=== PATIENT | female | born 2000 | race Hispanic/Latino ===

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

== ENCOUNTER 2021-02-14 07:07 | Outpatient (CLI) | payer MEDICAID ==
--- NOTE | 2021-02-14 08:21 | Event Note ---
Date: 02/14/21 pt returned to triage for evaluation d/t sharp stabbing pain in right groin. Pt afebrile (denies previous fevers), No rebound tenderness, no abd tenderness, no ctx palpated, no leaking, no bleeding. + FM. Pain is worsened by movement, especially sudden changes in position and movement towards the right side. Description of pain c/w round ligament pain but d/t this being the patient's second triage visit for same complaint, will repeat CBC for any elevation in WBCs, also check amylase and lipase. FHT CAT 1. Will review findings with Dr. Herrera.
[2021-02-14 08:39] LABS: Hematocrit 32.4 % (30.3-42.9); Hemoglobin 10.8 gm/dl (10.1-14.3); Mean Corpuscular HGB Conc 33 % (30-34); Mean Corpuscular Volume 85 fl (79-97); Platelet Count 341 K/mm3 (140-440); Red Blood Count 3.82 M/mm3 (3.65-5.03); Red Cell Distribution Width 14.7 % (13.2-15.2)
--- NOTE | 2021-02-14 09:46 | Ultrasound Report ---
ULTRASOUND ABDOMEN, LIMITED INDICATION: RIGHT LOWER QUADRANT PAIN. Patient is . COMPARISON: None available. FINDINGS: Ultrasound imaging is performed through the right lower quadrant. The appendix is not visualized. The right ovary is unremarkable. There is no free fluid in the right lower quadrant. IMPRESSION: 1. The appendix is not visualized. 2. The right ovary is unremarkable. Signer Name: Diego Euceda MD Signed: 02/14/2021 9:42 AM Workstation Name: [id number]
[2021-02-14 11:55] VITALS: BP 116/77
== END 2021-02-14 12:09 | disposition home or self-care (01) ==
LOC: TRG 07:07 → APU 07:08 → TRG 12:09
PROVIDERS: ATTEND Student in an Organized Health Care Education/Training Program
DX: Z34.93 Encounter for supervision of normal pregnancy, unspecified, third trimester (principal); Z3A.39 39 weeks gestation of pregnancy
CPT/HCPCS: 36415; 59025; 76705; 82150; 83690; 85027

== ENCOUNTER 2021-04-01 08:26 | Inpatient (IN) | payer MEDICAID ==
[2021-04-01] MEDS ORDERED: ACETAMINOPHEN 325 MG TAB PO PRN (08:28)
--- NOTE | 2021-04-01 08:34 | History and Physical Report ---
History of Present Illness Date of examination: 04/01/21 Date of admission: 04/01/21 08:26 Chief complaint: I'm here to be induced. History of present illness: Pt presents for a postdates IOL. EDC Confirmation: 03/24/2021 Gestational Age: 41.1 weeks on admission Past History : 2 Term Births: 0 Premature Births: 0 Living Children: 0 Para: 0 Mult. Births: 0 Prev : 0 Prev. attempt? 0 Aborta: 1 Elect. Ab: 1 Spont. 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 % Family History Risk Factors: Family History of PR in females < 65 years old: no Family History of PR in males < 55 years old: no Dietary Counseling: pn yes Past Medical History: UTI's Recurrent Past Surgical History: negative Family History Summary: MGM - Has Family History of Lung Cancer - Entered On: 08/18/2020 MGM - Has Family History of Hypertension - Entered On: 08/18/2020 MGM - Has Family History of Diabetes - Entered On: 08/18/2020 Father - Has Family History of Asthma - Entered On: 08/23/2020 MGM - Has Family History Breast Cancer - Entered On: 08/18/2020 Past Medical History Anesthesia Complications: negative Anemia: negative Autoimmune Disorder: negative Bleeding Disorder: negative Blood Transfusions: negative Breast Disease: negative Diabetes: negative Heart Disease: negative Hypertension: negative Hepatitis/Liver Disease: negative Kidney Disease/UTI: positive Neurologic/Epilepsy/Migraines: negative Phlebitis/Varicosities: negative Psychiatric: negative Pulmonary Disease/Asthma: negative Thyroid Disease: negative Hospitalizations: positive, pyelonephritis in 2018 Surgery (Non-bomb squad commander): negative Abnormal PAP: negative KRISTINE Exposure: negative Infertility: negative Uterine Anomaly: negative Uterine Surgery (not C/S): negative Other Gynecologic Problems: negative Infection History Hx of STD: chlamydia HIV Risk Eval: no Hepatitis B Risk Eval: low risk Personal hx. of genital herpes: no Partner hx. of genital herpes: no Rash, Viral, or Febrile illness since last LMP? no Varicella/Chicken Pox Status: Unknown TB Risk: no Genetic History Congenital Heart Defect: Mom: no Dad: unknown Vazquez Disease: Mom: no Dad: unknown Thalassemia Mom: no Dad: unknown Neural Tube Defect Mom: no Dad: unknown Down's Syndrome Mom: no Dad: unknown Leighton-Sachs Mom: no Dad: unknown Sickle Cell Disease/Trait Mom: no Dad: unknown Hemophilia Mom: no Dad: unknown Muscular Dystrophy Mom: no Dad: unknown Cystic Fibrosis Mom: no Dad: unknown Saurabh Chorea Mom: no Dad: unknown Mental Retardation Mom: no Dad: unknown Fragile X Mom: no Dad: unknown Other Genetic/Chromosomal Disorder Mom: no Dad: unknown Child w/other defect Mom: no Dad: unknown Other: sister with Sutton's syndrome Enviromental Exposures Enviromental Exposures Reviewed Xray Exposure: no Medication, drug, or alcohol use since LMP: no Chemical/Other Exposure: no Exposure to Cat Liter: no Hx of Parvovirus (Fifth Disease): no Occupational Exposure to Children: none Current Allergies (reviewed today): * BEES (Critical) Past History Past Medical History: other (Recurrent UTI's) Past Surgical History: no surgical history Family/Genetic History: diabetes, hypertension, cancer, other (Asthma and Sutton's Syndrome) Social history: no significant social history - Obstetrical History Expected Date of Delivery: 03/24/21 Actual Gestation: 41 Week(s) 1 Day(s) : 2 Para: 0 Hx # Term Pregnancies: 0 Number of Pregnancies: 0 Spontaneous Abortions: 0 Induced : 1 Number of Living Children: 0 Medications and Allergies Allergies Allergy/AdvReac Type Severity Reaction Status Date / Time No Known Allergies Allergy Verified 02/13/21 11:30 Home Medications Medication Instructions Recorded Confirmed Last Taken Type Albuterol Mdi (or & Nicu Only) 1 puff IH Q4H PRN #1 inha 03/21/16 Unknown Rx [Proair] Naproxen [Naproxen TAB] 250 mg PO BID PRN #14 tablet 03/21/16 Unknown Rx Phenylephrine/Dm/Acetaminop/GG 10 ml PO Q6H PRN #1 liquid 03/21/16 Unknown Rx [Mucinex Fast-Max Sev Cold Liq] Penicillin V Potassium 500 mg PO BID #20 tablet 04/10/18 Unknown Rx Ibuprofen [Motrin 600 MG tab] 600 mg PO Q8H PRN #21 tablet 10/30/18 Unknown Rx Promethazine [Phenergan] 25 mg PO Q6HR PRN #10 tab 12/17/18 Unknown Rx Ibuprofen [Motrin] 600 mg PO Q8H PRN #24 tablet 08/16/19 Unknown Rx Sulfamethoxazole/Trimethoprim 1 each PO Q12H #20 tablet 08/16/19 Unknown Rx [Bactrim DS TAB] Review of Systems All systems: negative - Physical Exam Breasts: Positive: deferred Cardiovascular: Regular rate Lungs: Positive: Normal air movement Abdomen: Positive: normal appearance, soft Genitourinary (Female): Positive: normal external genitalia, normal perenium Vulva: both: normal Vagina: Positive: normal moisture Anus/Rectum: Positive: normal perianal skin Extremities: Positive: normal - Obstetrical FHR: category 1 Uterine Contraction Monitor Mode: External Cervical Dilatation: 3.5 Cervical Effacement Percentage: 60 station: -2 Uterine Contraction Pattern: Irregular Uterine Tone Measurement Phase: Resting Uterine Contraction Intensity: Mild Results All other labs normal. GBS POSITIVE HBsAg Screen Negative Negative *1 RPR Non Reactive Non Reactive *2 Rubella Antibodies, IgG 1.46 index Immune >0.99 *3 Non-immune <0.90 Equivocal 0.90 - 0.99 Immune >0.99 ABO Grouping AB *4 Rh Factor Negative *5 Please note: Prior records for this patient's ABO / Rh type are not available for additional verification. Antibody Screen Negative Negative *6 WBC 9.4 x10E3/uL 3.4-10.8 *7 RBC 4.36 x10E6/uL 3.77-5.28 *8 Hemoglobin 12.9 g/dL 11.1-15.9 *9 Hematocrit 39.5 % 34.0-46.6 *10 MCV 91 fL 79-97 *11 MCH 29.6 pg 26.6-33.0 *12 MCHC 32.7 g/dL 31.5-35.7 *13 RDW 12.8 % 11.7-15.4 *14 Platelets 286 x10E3/uL 150-450 *15 Neutrophils 78 % Not Estab. *16 Lymphs 14 % Not Estab. *17 Monocytes 7 % Not Estab. *18 Eos 1 % Not Estab. *19 Basos 0 % Not Estab. *20 ! Immature Cells <No Reported Value> *21 Neutrophils (Absolute) [H] 7.3 x10E3/uL 1.4-7.0 *22 Lymphs (Absolute) 1.3 x10E3/uL 0.7-3.1 *23 Monocytes(Absolute) 0.6 x10E3/uL 0.1-0.9 *24 Eos (Absolute) 0.1 x10E3/uL 0.0-0.4 *25 Baso (Absolute) 0.0 x10E3/uL 0.0-0.2 *26 ! Immature Granulocytes 0 % Not Estab. *27 ! Immature Grans (Abs) 0.0 x10E3/uL 0.0-0.1 *28 ! NRBC <No Reported Value> *29 Hematology Comments: <No Reported Value> *30 Tests: (2) HB Solu + Rflx Frac (620249) Hemoglobin (Hgb) Solubility Negative Negative *31 Tests: (3) HIV Ag/Ab with Reflex ([id number]) HIV Screen 4th Generation wRfx Non Reactive Non Reactive *32 Tests: (4) Varicella-Zoster V Ab, IgG ([id number]) ! Varicella Zoster IgG [L] <135 index Immune >165 *33 Negative <135 Equivocal 135 - 165 Positive >165 A positive result generally indicates exposure to the pathogen or administration of specific immunoglobulins, but it is not indication of active infection or stage of disease. Tests: (5) Varicella-Zoster Ab, IgM ([id number]) ! Varicella-Zoster Ab, IgM <0.91 index 0.00-0.90 *34 Negative <0.91 Borderline 0.91 - 1.09 Positive >1.09 Tests: (6) HCV Antibody reflex to SLY ([id number]) ! HCV Ab <0.1 s/co ratio 0.0-0.9 *35 Tests: (7) Interpretation: ([id number]) ! Interpretation: SPRCS *36 Negative Not infected with HCV, unless recent infection is suspected or other evidence exists to indicate HCV infection. Tests: (8) Urine Culture, Routine ([id number]) Urine Culture, Routine [A] Final report *37 Tests: (9) Result ([id number]) ! Result 1 [A] BETAGB *38 Beta hemolytic Streptococcus, group B 10,000-25,000 colony forming units per mL Penicillin and ampicillin are drugs of choice for treatment of beta-hemolytic streptococcal infections. Susceptibility testing of penicillins and other beta-lactam agents approved by the FDA for treatment of beta-hemolytic streptococcal infections need not be performed routinely because nonsusceptible isolates are extremely rare in any beta-hemolytic streptococcus and have not been reported for Streptococcus pyogenes (group A). (CLSI) ! Assessment and Plan A: 20 y.o. @ 41.1 wks, augmentation of labor. - Patient Problems (1) GBS (group B streptococcus) infection Current Visit: Yes Status: Acute Plan to address problem: Antibiotics while in labor. (2) Post-term , 40-42 weeks of gestation Current Visit: Yes Status: Acute Plan to address problem: Admit to labor and delivery Initiate IV. Draw admission labs. IV pain management: IV pain medication and epidural prn. Augmentation of labor with Pitocin per protocol. Anticipate .
[2021-04-01] MEDS ORDERED: LOPERAMIDE 2 MG CAP PO PRN (09:00)
[2021-04-01] MEDS ORDERED: OXYTOCIN DRIP 30 UNITS/500 ML BAG IV SCH ×2 (09:00)
[2021-04-01] MEDS ORDERED: ePHEDrine SULFATE 50 MG/1 ML INJ IV PRN ×2 (09:30→17:41)
[2021-04-01] MEDS ORDERED: CARBOPROST TROMETHAMINE 250 MCG/1 ML INJ IM PRN (09:30)
[2021-04-01] MEDS ORDERED: fentaNYL 100 MCG/2 ML INJ IV PRN (09:30)
[2021-04-01] MEDS ORDERED: miSOPROStol 200 MCG TAB PR PRN (09:30)
[2021-04-01] MEDS ORDERED: ACETAMINOPHEN 500 MG TAB PO PRN (10:00)
[2021-04-01] MEDS ORDERED: ONDANSETRON 4 MG/2 ML INJ IV PRN (10:00)
[2021-04-01] MEDS ORDERED: PROMETHAZINE 25 MG TAB PO PRN (10:00)
[2021-04-01] MEDS ORDERED: TERBUTALINE 1 MG/1 ML INJ SUB-Q PRN (10:00)
[2021-04-01] MEDS ORDERED: OXYTOCIN 10 UNIT/1 ML INJ IM PRN (10:00)
[2021-04-01] MEDS ORDERED: MINERAL OIL 30 ML ORAL LIQD PO PRN (10:00)
[2021-04-01] MEDS ORDERED: NALOXONE 0.4 MG/1 ML INJ IV PRN (10:00)
[2021-04-01] MEDS ORDERED: LIDOCAINE (2%) 20 MG/1 ML VIAL 20 ML MDV INFILTRATI SCH (10:00)
[2021-04-01] MEDS ORDERED: BUTORPHANOL 2 MG/1 ML INJ IV PRN (10:00)
[2021-04-01] MEDS ORDERED: METHYLERGONOVINE MALEATE 0.2 MG/ML VIAL IM PRN (10:00)
[2021-04-01] MEDS ORDERED: AMPICILLIN/NS 2 GM/100 ML 2 GM/100 ML BAG IV SCH (10:00)
[2021-04-01] MEDS: LACTATED RINGERS 1,000 ML IV SCH ×2 (10:03→18:44)
[2021-04-01 10:25] LABS: Hematocrit 34.1 % (30.3-42.9); Hemoglobin 11.1 gm/dl (10.1-14.3); Mean Corpuscular HGB Conc 32 % (30-34); Mean Corpuscular Volume 83 fl (79-97); Platelet Count 318 K/mm3 (140-440); Red Blood Count 4.12 M/mm3 (3.65-5.03); Red Cell Distribution Width 16.3 % (13.2-15.2)
--- NOTE | 2021-04-01 13:05 | Progress Note ---
Assessment and Plan A: 20 y.o. @ 41.1, augmentation of labor, post dates. P: Continue with Pitocin per protocol. Will AROM at next cervical exam. Anticipate . - Patient Problems (1) GBS (group B streptococcus) infection Current Visit: Yes Status: Acute (2) Post-term , 40-42 weeks of gestation Current Visit: Yes Status: Acute Subjective - Subjective Date of service: 04/01/21 Principal diagnosis: IUP@ 41.1 wks, augmentation of labor d/t post dates Interval history: Cat 1 tracing. Pitocin @ 4mu. Pt resting in bed, feeling intermittent pain in lower back consistent with contractions. Does not desire pain medication at this time. Supportive partner at bedside. RN at bedside adjusting EFM monitors. Patient reports: movement normal, contractions, no new complaints, no loss of fluid, no vaginal bleeding Objective - Vital Signs Vital Signs: Vital Signs - 12hr 04/01/21 04/01/21 04/01/21 10:15 10:16 10:17 Temperature 97.9 F Pulse Rate 86 90 Respiratory 18 Rate Blood Pressure 119/73 Blood Pressure 119/73 [Right] O2 Sat by Pulse 98 98 Oximetry O2 Sat by Pulse 98 Oximetry [ Bilateral] 04/01/21 04/01/21 04/01/21 10:21 10:26 10:31 Temperature Pulse Rate 86 80 90 Respiratory Rate Blood Pressure Blood Pressure [Right] O2 Sat by Pulse 98 98 98 Oximetry O2 Sat by Pulse Oximetry [ Bilateral] 04/01/21 04/01/21 04/01/21 10:36 10:41 10:46 Temperature Pulse Rate 85 87 95 H Respiratory Rate Blood Pressure Blood Pressure [Right] O2 Sat by Pulse 99 99 99 Oximetry O2 Sat by Pulse Oximetry [ Bilateral] 04/01/21 04/01/21 04/01/21 10:51 10:56 11:01 Temperature Pulse Rate 85 89 88 Respiratory Rate Blood Pressure Blood Pressure [Right] O2 Sat by Pulse 99 99 98 Oximetry O2 Sat by Pulse Oximetry [ Bilateral] 04/01/21 04/01/21 04/01/21 11:06 11:11 11:16 Temperature Pulse Rate 90 93 H 79 Respiratory Rate Blood Pressure Blood Pressure [Right] O2 Sat by Pulse 99 99 100 Oximetry O2 Sat by Pulse Oximetry [ Bilateral] 04/01/21 04/01/21 04/01/21 11:21 11:26 11:31 Temperature Pulse Rate 86 80 82 Respiratory Rate Blood Pressure Blood Pressure [Right] O2 Sat by Pulse 99 99 99 Oximetry O2 Sat by Pulse Oximetry [ Bilateral] 04/01/21 04/01/21 04/01/21 11:36 11:44 11:49 Temperature Pulse Rate 78 83 84 Respiratory Rate Blood Pressure Blood Pressure [Right] O2 Sat by Pulse 99 99 99 Oximetry O2 Sat by Pulse Oximetry [ Bilateral] 04/01/21 04/01/21 04/01/21 11:54 11:59 12:04 Temperature Pulse Rate 78 79 84 Respiratory Rate Blood Pressure Blood Pressure [Right] O2 Sat by Pulse 99 99 99 Oximetry O2 Sat by Pulse Oximetry [ Bilateral] 04/01/21 04/01/21 04/01/21 12:09 12:14 12:19 Temperature Pulse Rate 88 82 81 Respiratory Rate Blood Pressure Blood Pressure [Right] O2 Sat by Pulse 100 100 100 Oximetry O2 Sat by Pulse Oximetry [ Bilateral] 04/01/21 04/01/21 04/01/21 12:24 12:29 12:34 Temperature Pulse Rate 76 81 84 Respiratory Rate Blood Pressure Blood Pressure [Right] O2 Sat by Pulse 99 99 99 Oximetry O2 Sat by Pulse Oximetry [ Bilateral] 04/01/21 04/01/21 04/01/21 12:39 12:44 12:49 Temperature Pulse Rate 78 76 77 Respiratory Rate Blood Pressure Blood Pressure [Right] O2 Sat by Pulse 99 99 99 Oximetry O2 Sat by Pulse Oximetry [ Bilateral] 04/01/21 12:54 Temperature Pulse Rate 80 Respiratory Rate Blood Pressure Blood Pressure [Right] O2 Sat by Pulse 100 Oximetry O2 Sat by Pulse Oximetry [ Bilateral] - Exam FHR: category 1 Uterine Contraction Monitor Mode: External Cervical Dilatation: 5 Cervical Effacement Percentage: 60 station: -2 Uterine Contraction Frequency (min): q2-3 min Uterine Contraction Duration: 50-70 seconds Uterine Contraction Pattern: Regular Uterine Tone Measurement Phase: Resting Uterine Contraction Intensity: Mild - Labs Labs: Abnormal Labs 04/01/21 09:28 MCH 27 L RDW 16.3 H Laboratory Results - last 24 hr 04/01/21 04/01/21 04/01/21 09:28 09:28 09:36 WBC 9.2 RBC 4.12 Hgb 11.1 Hct 34.1 MCV 83 MCH 27 L MCHC 32 RDW 16.3 H Plt Count 318 Syphilis IgG Antibody Nonreactive SARS-CoV-2 (PCR) Blood Type AB NEGATIVE Antibody Screen Negative 04/01/21 09:40 WBC RBC Hgb Hct MCV MCH MCHC RDW Plt Count Syphilis IgG Antibody SARS-CoV-2 (PCR) Negative Blood Type Antibody Screen
[2021-04-01] MEDS: AMPICILLIN/NS 1 GM/50 ML 1 GM/50 ML BAG IV SCH ×2 (15:23→20:38)
--- NOTE | 2021-04-01 17:13 | Event Note ---
Date: 04/01/21 Pt starting to feel contractions. AROM for clear fluid. Cervical exam . Pt requesting epidural. Anesthesia aware. Currently a category 1 monitor tracing. Pitocin at 6mu. Anticipate .
[2021-04-01] MEDS ORDERED: NALOXONE 2 MG/2 ML INJ IV PRN (17:41)
[2021-04-01] MEDS ORDERED: BUPIVACAINE/PF (0.25%) 2.5 MG/ML 10 ML VIAL INFILTRATI ONE (17:47)
[2021-04-01] MEDS ORDERED: fentaNYL-BUPIV 2 MCG/ML-0.125% 200 MCG/100 ML BAG EPIDURAL SCH (18:00)
--- NOTE | 2021-04-01 18:14 | Anesthesia Consultation ---
Anesthesia Consult and Med Hx Date of service: 04/01/21 - Airway Anesthetic Teeth Evaluation: Poor ROM Head & Neck: Adequate Mental/Hyoid Distance: Adequate Mallampati Class: Class II Intubation Access Assessment: Good - Pulmonary Exam CTA: Yes - Cardiac Exam Cardiac Exam: RRR - Pre-Operative Health Status ASA Pre-Surgery Classification: ASA2 Proposed Anesthetic Plan: Epidural - Pulmonary Hx Smoking: No Hx Asthma: No Hx Respiratory Symptoms: No SOB: No COPD: No Home Oxygen Therapy: No Hx Pneumonia: No Hx Sleep Apnea: No - Cardiovascular System Hx Hypertension: No Hx Coronary Artery Disease: No Hx Heart Attack/AMI: No - Central Nervous System Hx Seizures: No CVA: No Hx Back Pain: No Hx Psychiatric Problems: No - Gastrointestinal Hx Ulcer: No Hx Gastroesophageal Reflux Disease: No - Endocrine Hx Renal Disease: No Hx End Stage Renal Disease: No Hx Cirrhosis: No Hx Liver Disease: No Hx Insulin Dependent Diabetes: No Hx Non-Insulin Dependent Diabetes: No Hx Hypothyroidism: No Hx Hyperthyroidism: No - Hematic Hx Anemia: No Hx Sickle Cell Disease: No - Other Systems Hx Alcohol Use: No Hx Substance Use: No Hx Obesity: Yes
--- NOTE | 2021-04-01 18:28 | Progress Note ---
Spinal Anesthesia Block - Spinal Anesthesia Block Start Time: 17:56 Stop Time: 18:05 Performed by:: CHERY MENDIOLA Procedure: Patient is requesting epidural for labor pain. H&P and labs reviewed. Procedure explained, questions answered, consent obtained. Patient placed in sitting position with monitors applied. Timeout performed immediately before start of procedure. Prep/drape in usual sterile fashion. Skin localized 3 mL 1% lidocaine at L[3]-L[4] interspace. 17-gauge Touhy epidural needle advanced to CADE with saline at [8] cm. No blood/CSF noted via epidural needle. Epidural catheter advanced to [12] cm. Negative aspiration for blood and CSF via catheter, negative response to test dose 3 ml 1.5% lidocaine w/ epi. Sterile dressing applied followed by tape reinforcement. Patient tolerated procedure well. No immediate complications noted. 2.5% Bupivacaine 8mL loading Dose.
--- NOTE | 2021-04-01 20:04 | Progress Note ---
Assessment and Plan A: 20 y.o. 41.1 wks, active labor. Cervical exam . - Patient Problems (1) GBS (group B streptococcus) infection Current Visit: Yes Status: Acute Plan to address problem: Continue with antibiotics in labor. (2) Post-term , 40-42 weeks of gestation Current Visit: Yes Status: Acute Plan to address problem: Pitocin turned off at this time. Once category 1 EFM, will restart Pitocin. Anticipate . Subjective - Subjective Date of service: 04/01/21 Principal diagnosis: IUP@ 41.1 wks, augmentation of labor d/t post dates Patient reports: movement normal, contractions, no new complaints, no loss of fluid, no vaginal bleeding Objective - Vital Signs Vital Signs: Vital Signs - 12hr 04/01/21 04/01/21 04/01/21 10:15 10:16 10:17 Temperature 97.9 F Pulse Rate 86 90 Respiratory 18 Rate Blood Pressure 119/73 Blood Pressure 119/73 [Right] O2 Sat by Pulse 98 98 Oximetry O2 Sat by Pulse 98 Oximetry [ Bilateral] 04/01/21 04/01/21 04/01/21 10:21 10:26 10:31 Temperature Pulse Rate 86 80 90 Respiratory Rate Blood Pressure Blood Pressure [Right] O2 Sat by Pulse 98 98 98 Oximetry O2 Sat by Pulse Oximetry [ Bilateral] 04/01/21 04/01/21 04/01/21 10:36 10:41 10:46 Temperature Pulse Rate 85 87 95 H Respiratory Rate Blood Pressure Blood Pressure [Right] O2 Sat by Pulse 99 99 99 Oximetry O2 Sat by Pulse Oximetry [ Bilateral] 04/01/21 04/01/21 04/01/21 10:51 10:56 11:01 Temperature Pulse Rate 85 89 88 Respiratory Rate Blood Pressure Blood Pressure [Right] O2 Sat by Pulse 99 99 98 Oximetry O2 Sat by Pulse Oximetry [ Bilateral] 04/01/21 04/01/21 04/01/21 11:06 11:11 11:16 Temperature Pulse Rate 90 93 H 79 Respiratory Rate Blood Pressure Blood Pressure [Right] O2 Sat by Pulse 99 99 100 Oximetry O2 Sat by Pulse Oximetry [ Bilateral] 04/01/21 04/01/21 04/01/21 11:21 11:26 11:31 Temperature Pulse Rate 86 80 82 Respiratory Rate Blood Pressure Blood Pressure [Right] O2 Sat by Pulse 99 99 99 Oximetry O2 Sat by Pulse Oximetry [ Bilateral] 04/01/21 04/01/21 04/01/21 11:36 11:44 11:49 Temperature Pulse Rate 78 83 84 Respiratory Rate Blood Pressure Blood Pressure [Right] O2 Sat by Pulse 99 99 99 Oximetry O2 Sat by Pulse Oximetry [ Bilateral] 04/01/21 04/01/21 04/01/21 11:54 11:59 12:04 Temperature Pulse Rate 78 79 84 Respiratory Rate Blood Pressure Blood Pressure [Right] O2 Sat by Pulse 99 99 99 Oximetry O2 Sat by Pulse Oximetry [ Bilateral] 04/01/21 04/01/21 04/01/21 12:09 12:14 12:19 Temperature Pulse Rate 88 82 81 Respiratory Rate Blood Pressure Blood Pressure [Right] O2 Sat by Pulse 100 100 100 Oximetry O2 Sat by Pulse Oximetry [ Bilateral] 04/01/21 04/01/21 04/01/21 12:24 12:29 12:34 Temperature Pulse Rate 76 81 84 Respiratory Rate Blood Pressure Blood Pressure [Right] O2 Sat by Pulse 99 99 99 Oximetry O2 Sat by Pulse Oximetry [ Bilateral] 04/01/21 04/01/21 04/01/21 12:39 12:44 12:49 Temperature Pulse Rate 78 76 77 Respiratory Rate Blood Pressure Blood Pressure [Right] O2 Sat by Pulse 99 99 99 Oximetry O2 Sat by Pulse Oximetry [ Bilateral] 04/01/21 04/01/21 04/01/21 12:54 12:59 13:04 Temperature Pulse Rate 80 76 77 Respiratory Rate Blood Pressure Blood Pressure [Right] O2 Sat by Pulse 100 100 100 Oximetry O2 Sat by Pulse Oximetry [ Bilateral] 04/01/21 04/01/21 04/01/21 13:09 13:14 13:19 Temperature Pulse Rate 75 79 81 Respiratory Rate Blood Pressure Blood Pressure [Right] O2 Sat by Pulse 100 100 99 Oximetry O2 Sat by Pulse Oximetry [ Bilateral] 04/01/21 04/01/21 04/01/21 13:24 13:29 13:40 Temperature Pulse Rate 85 72 94 H Respiratory Rate Blood Pressure Blood Pressure [Right] O2 Sat by Pulse 100 100 100 Oximetry O2 Sat by Pulse Oximetry [ Bilateral] 04/01/21 04/01/21 04/01/21 13:45 13:50 13:55 Temperature Pulse Rate 84 80 80 Respiratory Rate Blood Pressure Blood Pressure [Right] O2 Sat by Pulse 99 100 100 Oximetry O2 Sat by Pulse Oximetry [ Bilateral] 04/01/21 04/01/21 04/01/21 14:00 14:05 14:10 Temperature Pulse Rate 72 72 70 Respiratory Rate Blood Pressure Blood Pressure [Right] O2 Sat by Pulse 100 99 100 Oximetry O2 Sat by Pulse Oximetry [ Bilateral] 04/01/21 04/01/21 04/01/21 14:15 14:20 14:25 Temperature Pulse Rate 86 74 70 Respiratory Rate Blood Pressure Blood Pressure [Right] O2 Sat by Pulse 100 100 100 Oximetry O2 Sat by Pulse Oximetry [ Bilateral] 04/01/21 04/01/21 04/01/21 14:30 14:35 14:40 Temperature Pulse Rate 83 84 85 Respiratory Rate Blood Pressure Blood Pressure [Right] O2 Sat by Pulse 100 100 100 Oximetry O2 Sat by Pulse Oximetry [ Bilateral] 04/01/21 04/01/21 04/01/21 14:45 14:50 14:55 Temperature Pulse Rate 78 80 80 Respiratory Rate Blood Pressure Blood Pressure [Right] O2 Sat by Pulse 100 100 100 Oximetry O2 Sat by Pulse Oximetry [ Bilateral] 04/01/21 04/01/21 04/01/21 15:00 15:05 15:13 Temperature Pulse Rate 75 88 94 H Respiratory Rate Blood Pressure Blood Pressure [Right] O2 Sat by Pulse 100 100 99 Oximetry O2 Sat by Pulse Oximetry [ Bilateral] 04/01/21 04/01/21 04/01/21 15:18 15:23 15:25 Temperature 97.8 F Pulse Rate 89 82 Respiratory Rate Blood Pressure 130/91 Blood Pressure 130/91 [Right] O2 Sat by Pulse 100 100 Oximetry O2 Sat by Pulse Oximetry [ Bilateral] 04/01/21 04/01/21 04/01/21 15:28 15:33 15:38 Temperature Pulse Rate 81 93 H 90 Respiratory Rate Blood Pressure Blood Pressure [Right] O2 Sat by Pulse 100 99 100 Oximetry O2 Sat by Pulse Oximetry [ Bilateral] 04/01/21 04/01/21 04/01/21 15:43 15:48 15:53 Temperature Pulse Rate 82 76 87 Respiratory Rate Blood Pressure Blood Pressure [Right] O2 Sat by Pulse 100 100 100 Oximetry O2 Sat by Pulse Oximetry [ Bilateral] 04/01/21 04/01/21 04/01/21 15:58 16:03 16:08 Temperature Pulse Rate 80 82 70 Respiratory Rate Blood Pressure Blood Pressure [Right] O2 Sat by Pulse 100 100 100 Oximetry O2 Sat by Pulse Oximetry [ Bilateral] 04/01/21 04/01/21 04/01/21 16:13 16:18 16:23 Temperature Pulse Rate 73 74 77 Respiratory Rate Blood Pressure Blood Pressure [Right] O2 Sat by Pulse 100 100 100 Oximetry O2 Sat by Pulse Oximetry [ Bilateral] 04/01/21 04/01/21 04/01/21 16:28 16:33 16:38 Temperature Pulse Rate 84 74 86 Respiratory Rate Blood Pressure Blood Pressure [Right] O2 Sat by Pulse 100 100 100 Oximetry O2 Sat by Pulse Oximetry [ Bilateral] 04/01/21 04/01/21 04/01/21 16:43 16:48 16:53 Temperature Pulse Rate 80 68 74 Respiratory Rate Blood Pressure Blood Pressure [Right] O2 Sat by Pulse 100 100 100 Oximetry O2 Sat by Pulse Oximetry [ Bilateral] 04/01/21 04/01/21 04/01/21 16:58 17:03 17:14 Temperature Pulse Rate 85 71 70 Respiratory Rate Blood Pressure Blood Pressure [Right] O2 Sat by Pulse 100 100 100 Oximetry O2 Sat by Pulse Oximetry [ Bilateral] 04/01/21 04/01/21 04/01/21 17:19 17:24 17:29 Temperature Pulse Rate 80 76 87 Respiratory Rate Blood Pressure Blood Pressure [Right] O2 Sat by Pulse 100 100 100 Oximetry O2 Sat by Pulse Oximetry [ Bilateral] 04/01/21 04/01/21 04/01/21 17:34 17:39 17:44 Temperature Pulse Rate 89 79 73 Respiratory Rate Blood Pressure Blood Pressure [Right] O2 Sat by Pulse 100 100 100 Oximetry O2 Sat by Pulse Oximetry [ Bilateral] 04/01/21 04/01/21 04/01/21 17:49 17:53 17:54 Temperature Pulse Rate 71 81 65 Respiratory Rate Blood Pressure 121/79 Blood Pressure [Right] O2 Sat by Pulse 100 100 Oximetry O2 Sat by Pulse Oximetry [ Bilateral] 04/01/21 04/01/21 04/01/21 17:59 18:03 18:04 Temperature Pulse Rate 68 77 70 Respiratory Rate Blood Pressure 143/83 Blood Pressure [Right] O2 Sat by Pulse 100 100 Oximetry O2 Sat by Pulse Oximetry [ Bilateral] 04/01/21 04/01/21 04/01/21 18:06 18:09 18:10 Temperature 97.9 F Pulse Rate 83 66 Respiratory Rate Blood Pressure 141/84 146/92 Blood Pressure [Right] O2 Sat by Pulse 100 Oximetry O2 Sat by Pulse Oximetry [ Bilateral] 04/01/21 04/01/21 04/01/21 18:12 18:14 18:15 Temperature Pulse Rate 68 75 73 Respiratory Rate Blood Pressure 135/77 134/72 Blood Pressure [Right] O2 Sat by Pulse 100 Oximetry O2 Sat by Pulse Oximetry [ Bilateral] 04/01/21 04/01/21 04/01/21 18:18 18:19 18:21 Temperature Pulse Rate 71 69 69 Respiratory Rate Blood Pressure 137/82 131/76 Blood Pressure [Right] O2 Sat by Pulse 100 Oximetry O2 Sat by Pulse Oximetry [ Bilateral] 04/01/21 04/01/21 04/01/21 18:24 18:29 18:31 Temperature Pulse Rate 79 78 68 Respiratory Rate Blood Pressure 110/73 110/61 Blood Pressure [Right] O2 Sat by Pulse 100 100 Oximetry O2 Sat by Pulse Oximetry [ Bilateral] 04/01/21 04/01/21 04/01/21 18:34 18:35 18:39 Temperature Pulse Rate 75 68 71 Respiratory Rate Blood Pressure 111/65 Blood Pressure [Right] O2 Sat by Pulse 100 100 Oximetry O2 Sat by Pulse Oximetry [ Bilateral] 04/01/21 04/01/21 04/01/21 18:40 18:44 18:46 Temperature Pulse Rate 79 69 68 Respiratory Rate Blood Pressure 108/65 112/59 Blood Pressure [Right] O2 Sat by Pulse 100 Oximetry O2 Sat by Pulse Oximetry [ Bilateral] 04/01/21 04/01/21 04/01/21 18:49 18:50 18:54 Temperature Pulse Rate 107 H 91 H 84 Respiratory Rate Blood Pressure 139/87 Blood Pressure [Right] O2 Sat by Pulse 100 100 Oximetry O2 Sat by Pulse Oximetry [ Bilateral] 04/01/21 04/01/21 04/01/21 18:56 18:59 19:04 Temperature Pulse Rate 81 77 77 Respiratory Rate Blood Pressure 122/60 Blood Pressure [Right] O2 Sat by Pulse 100 100 Oximetry O2 Sat by Pulse Oximetry [ Bilateral] 04/01/21 04/01/21 04/01/21 19:09 19:11 19:14 Temperature Pulse Rate 77 82 75 Respiratory Rate Blood Pressure 89/58 Blood Pressure [Right] O2 Sat by Pulse 100 100 Oximetry O2 Sat by Pulse Oximetry [ Bilateral] 04/01/21 04/01/21 04/01/21 19:15 19:19 19:24 Temperature Pulse Rate 80 77 86 Respiratory Rate Blood Pressure 89/52 Blood Pressure [Right] O2 Sat by Pulse 100 100 Oximetry O2 Sat by Pulse Oximetry [ Bilateral] 04/01/21 04/01/21 04/01/21 19:26 19:29 19:31 Temperature Pulse Rate 71 77 101 H Respiratory Rate Blood Pressure 103/51 80/44 Blood Pressure [Right] O2 Sat by Pulse 100 Oximetry O2 Sat by Pulse Oximetry [ Bilateral] 04/01/21 04/01/21 04/01/21 19:34 19:36 19:39 Temperature Pulse Rate 68 79 66 Respiratory Rate Blood Pressure 98/54 Blood Pressure [Right] O2 Sat by Pulse 100 100 Oximetry O2 Sat by Pulse Oximetry [ Bilateral] 04/01/21 04/01/21 04/01/21 19:41 19:44 19:46 Temperature Pulse Rate 67 92 H 75 Respiratory Rate Blood Pressure 84/53 108/67 Blood Pressure [Right] O2 Sat by Pulse 99 Oximetry O2 Sat by Pulse Oximetry [ Bilateral] 04/01/21 04/01/21 19:49 19:50 Temperature Pulse Rate 66 69 Respiratory Rate Blood Pressure 103/63 Blood Pressure [Right] O2 Sat by Pulse 100 Oximetry O2 Sat by Pulse Oximetry [ Bilateral] - Exam Narrative Exam: Variable and late decelerations noted. Blood pressure ranges at that time were 80's/50's. Pitocin turned off, pt repositioned to right lateral. Cervical exam 8/80/-1. FSE and IUPC placed. Ephedrine IV given. Blood pressures returned to 100-140's/70-80's. heart rate returned to baseline after interventions. Cardiovascular: Regular rate Lungs: Normal air movement Abdomen: Present: normal appearance Vulva: both: normal FHR: category 2 (Variable and late decelerations noted. ) Cervical Dilatation: 8 Cervical Effacement Percentage: 80 station: -1 Uterine Contraction Pattern: Regular Uterine Tone Measurement Phase: Resting Uterine Contraction Intensity: Moderate - Labs Labs: Abnormal Labs 04/01/21 09:28 MCH 27 L RDW 16.3 H Laboratory Results - last 24 hr 04/01/21 04/01/21 04/01/21 09:28 09:28 09:36 WBC 9.2 RBC 4.12 Hgb 11.1 Hct 34.1 MCV 83 MCH 27 L MCHC 32 RDW 16.3 H Plt Count 318 Syphilis IgG Antibody Nonreactive SARS-CoV-2 (PCR) Blood Type AB NEGATIVE Antibody Screen Negative 04/01/21 09:40 WBC RBC Hgb Hct MCV MCH MCHC RDW Plt Count Syphilis IgG Antibody SARS-CoV-2 (PCR) Negative Blood Type Antibody Screen
--- NOTE | 2021-04-01 22:12 | Event Note ---
Date: 04/01/21 Pt with dense epidural. Cervical exam /+1. Will turn epidural down and let her labor down. Will began pushing in 30 minutes. Anticipate .
--- NOTE | 2021-04-02 00:48 | Procedure Note ---
OB Delivery Note - Delivery Date of Delivery: 04/01/21 (0525) [employer] Deckhand: KATHY JORDAN (Gretchen Gomez) Estimated blood loss: other (EBL 250) - Vaginal Delivery position: OA Intrapartum events: none Delivery augmentation: rupture of membranes, pitocin Delivery monitor: external FHT, external uterine, internal FHT, internal uterine Route of delivery: Delivery placenta: spontaneous Episiotomy: none Delivery laceration: 1st degree, other (bilateral periurethral abrasions, not repaired) Delivery repair: vicryl Anesthesia: epidural Delivery comments: SVE: c/c/+1 @2200, Pitocin infusing @ 4mu. Pt not feeling urge to push at this time r/t dense epidural. Epidural turned down, pushing initiated with contractions @2250. Cat 1 Tracing. of vigorous female infant @2355. Immediately placed skin to skin on maternal abdomen, delayed cord clamping x2 minutes. APGARS 8/9. Pitocin initiated. Intact delivery of [place] placenta, 3 vessel cord, complete. Bilateral periurethral abrasions not repaired, 1st degree repaired with 3-0 SH. QBL 250mL. Fundus firm, midline@U bleeding moderate. Sponges and instruments counted with RN x2 and correct x2. Infant and mother recovering well. Left in care of RN in stable condition @0035. -Kathy Jordan CNM & Gretchen Gomez - A at 1 minute: 8 at 5 minutes: 9 Gender: Female (delayed cord clamping x2 min)
[2021-04-02] MEDS ORDERED: BENZOCAINE/MENTHOL 20/0.5% TOP SPRAY 56 GM TP PRN (02:49)
[2021-04-02] MEDS ORDERED: miSOPROStol 100 MCG TAB PR PRN (02:49)
[2021-04-02] MEDS ORDERED: ACETAMINOPHEN 325 MG TAB PO PRN (02:49)
[2021-04-02] MEDS ORDERED: PROMETHAZINE 25 MG RECT SUPP PR PRN (02:49)
[2021-04-02] MEDS ORDERED: OXYTOCIN DRIP 30 UNITS/500 ML BAG IV SCH (02:49)
[2021-04-02] MEDS ORDERED: diphenhydrAMINE 25 MG CAP PO PRN (02:49)
[2021-04-02] MEDS ORDERED: ONDANSETRON 4 MG/2 ML INJ IV PRN (02:49)
[2021-04-02] MEDS ORDERED: PROMETHAZINE 25 MG TAB PO PRN (02:49)
[2021-04-02] MEDS ORDERED: MAGNESIUM HYDROXIDE (MOM) ORAL LIQD UDC PO PRN (02:49)
[2021-04-02] MEDS ORDERED: IBUPROFEN 600 MG TAB PO SCH (02:49)
[2021-04-02] MEDS ORDERED: oxyCODONE /ACETAMINOPHEN 5-325MG TAB PO PRN (02:49)
[2021-04-02] MEDS ORDERED: LANOLIN/ZINC/DIMETHICONE (LANSINOH) 7 GM TP PRN ×2 (02:49)
[2021-04-02] MEDS: WITCH HAZEL/ GLYCERIN PAD TP PRN (03:39)
[2021-04-02] MEDS: IBUPROFEN 800 MG TAB PO SCH ×3 (03:39→17:42)
--- NOTE | 2021-04-02 06:42 | Progress Note ---
Assessment and Plan A: 20 y.o. s/p , ~ 6 hrs. Doing well. P: Continue with care. Anticipate discharge home on 04/03. Subjective - Subjective Date of service: 04/02/21 Principal diagnosis: s/p Patient reports: appetite normal, voiding normally, pain well controlled, ambulating normally [place]: doing well Objective - Vital Signs Latest vital signs: Vital Signs Temp Pulse Resp BP BP Pulse Ox Pulse Ox 04/02/21 03:00 98 04/02/21 02:25 98.3 F 100 H 18 117/73 98 04/02/21 01:44 86 99 04/02/21 01:41 89 118/62 04/02/21 01:39 95 H 100 04/02/21 01:34 89 99 04/02/21 01:29 98 H 100 04/02/21 01:26 83 115/56 04/02/21 01:24 96 H 99 04/02/21 01:19 105 H 99 04/02/21 01:14 100 H 99 04/02/21 01:11 76 109/58 04/02/21 01:09 102 H 99 04/02/21 01:04 102 H 99 04/02/21 00:59 91 H 99 04/02/21 00:56 93 H 106/58 04/02/21 00:54 84 99 04/02/21 00:49 108 H 99 04/02/21 00:44 102 H 99 04/02/21 00:41 89 110/58 04/02/21 00:39 109 H 98 04/02/21 00:34 91 H 98 04/02/21 00:29 91 H 99 04/02/21 00:26 97 H 113/58 04/02/21 00:24 99 H 99 04/02/21 00:19 100 H 99 04/02/21 00:14 89 100 04/02/21 00:10 85 118/56 04/02/21 00:09 84 100 04/02/21 00:04 106 H 99 04/01/21 23:59 103 H 100 04/01/21 23:54 111 H 99 04/01/21 23:49 125 H 100 04/01/21 23:44 67 119/67 100 04/01/21 23:39 95 H 100 04/01/21 23:34 118 H 100 04/01/21 23:29 72 100 04/01/21 23:24 88 100 04/01/21 23:19 91 H 100 04/01/21 23:16 75 116/68 04/01/21 23:14 73 100 04/01/21 23:10 80 119/73 04/01/21 23:09 105 H 100 04/01/21 23:06 78 119/74 04/01/21 23:04 113 H 100 04/01/21 22:59 107 H 99 04/01/21 22:57 87 126/48 04/01/21 22:56 107 H 122/64 04/01/21 22:54 94 H 99 04/01/21 22:53 108 H 109/57 04/01/21 22:49 84 100 04/01/21 22:47 87 116/11 04/01/21 22:44 92 H 99 04/01/21 22:40 96 H 112/54 04/01/21 22:39 88 98 04/01/21 22:37 90 127/62 04/01/21 22:34 79 99 04/01/21 22:31 75 106/60 04/01/21 22:29 72 100 04/01/21 22:26 82 123/56 04/01/21 22:25 73 88 04/01/21 22:24 78 100 04/01/21 22:20 78 110/61 04/01/21 22:19 80 100 04/01/21 22:16 128/89 04/01/21 22:14 79 100 04/01/21 22:11 84 115/64 04/01/21 22:09 87 100 04/01/21 22:05 81 92 04/01/21 22:04 96 H 98 04/01/21 22:01 98 H 117/65 04/01/21 21:59 83 100 04/01/21 21:57 75 115/64 04/01/21 21:54 104 H 100 04/01/21 21:51 96 H 106/67 04/01/21 21:49 79 100 04/01/21 21:45 90 114/57 04/01/21 21:44 83 100 04/01/21 21:40 102 H 108/55 04/01/21 21:39 92 H 100 04/01/21 21:35 112/62 01/21/22 21:34 85 100 04/01/21 21:30 89 113/61 04/01/21 21:29 89 100 04/01/21 21:25 97.7 F 04/01/21 21:24 85 100 04/01/21 21:19 81 100 04/01/21 21:15 93 H 110/59 04/01/21 21:14 96 H 100 04/01/21 21:13 171 H 113/51 04/01/21 21:09 101 H 100 04/01/21 21:05 73 112/67 04/01/21 21:04 75 100 04/01/21 21:01 77 103/77 04/01/21 20:59 88 100 04/01/21 20:54 83 98 04/01/21 20:51 82 120/77 04/01/21 20:49 79 98 04/01/21 20:46 77 94 04/01/21 20:45 71 107/56 04/01/21 20:44 67 96 04/01/21 20:41 67 111/59 04/01/21 20:39 89 100 04/01/21 20:37 96 H 129/54 04/01/21 20:34 91 H 98 04/01/21 20:29 75 100 04/01/21 20:27 93 H 115/57 04/01/21 20:24 63 100 04/01/21 20:20 75 118/66 04/01/21 20:19 59 L 99 04/01/21 20:15 73 122/61 04/01/21 20:14 65 100 04/01/21 20:10 71 127/69 04/01/21 20:09 62 99 04/01/21 20:06 72 120/61 04/01/21 20:04 67 99 04/01/21 20:02 62 122/76 04/01/21 19:59 71 100 04/01/21 19:56 81 142/72 04/01/21 19:54 122 H 100 04/01/21 19:50 69 103/63 04/01/21 19:49 66 100 04/01/21 19:46 75 108/67 04/01/21 19:44 92 H 99 04/01/21 19:41 67 84/53 04/01/21 19:39 66 100 01/21/22 19:36 79 98/54 04/01/21 19:34 68 100 04/01/21 19:31 101 H 80/44 04/01/21 19:29 77 100 04/01/21 19:26 71 103/51 04/01/21 19:24 86 100 04/01/21 19:19 77 100 04/01/21 19:15 80 89/52 04/01/21 19:14 75 100 04/01/21 19:11 82 89/58 04/01/21 19:09 77 100 04/01/21 19:04 77 100 04/01/21 18:59 77 100 04/01/21 18:56 81 122/60 04/01/21 18:54 84 100 04/01/21 18:50 91 H 139/87 04/01/21 18:49 107 H 100 04/01/21 18:46 68 112/59 04/01/21 18:44 69 100 04/01/21 18:40 79 108/65 04/01/21 18:39 71 100 04/01/21 18:35 68 111/65 04/01/21 18:34 75 100 04/01/21 18:31 68 110/61 04/01/21 18:29 78 100 04/01/21 18:24 79 110/73 100 04/01/21 18:21 69 131/76 04/01/21 18:19 69 100 04/01/21 18:18 71 137/82 04/01/21 18:15 73 134/72 04/01/21 18:14 75 100 04/01/21 18:12 68 135/77 04/01/21 18:10 97.9 F 04/01/21 18:09 66 146/92 100 04/01/21 18:06 83 141/84 04/01/21 18:04 70 100 04/01/21 18:03 77 143/83 04/01/21 17:59 68 100 04/01/21 17:54 65 100 04/01/21 17:53 81 121/79 04/01/21 17:49 71 100 04/01/21 17:44 73 100 04/01/21 17:39 79 100 04/01/21 17:34 89 100 04/01/21 17:29 87 100 04/01/21 17:24 76 100 04/01/21 17:19 80 100 04/01/21 17:14 70 100 04/01/21 17:03 71 100 04/01/21 16:58 85 100 04/01/21 16:53 74 100 04/01/21 16:48 68 100 04/01/21 16:43 80 100 04/01/21 16:38 86 100 04/01/21 16:33 74 100 04/01/21 16:28 84 100 04/01/21 16:23 77 100 04/01/21 16:18 74 100 04/01/21 16:13 73 100 04/01/21 16:08 70 100 04/01/21 16:03 82 100 04/01/21 15:58 80 100 04/01/21 15:53 87 100 04/01/21 15:48 76 100 04/01/21 15:43 82 100 04/01/21 15:38 90 100 04/01/21 15:33 93 H 99 04/01/21 15:28 81 100 04/01/21 15:25 97.8 F 130/91 04/01/21 15:23 82 130/91 100 04/01/21 15:18 89 100 04/01/21 15:13 94 H 99 04/01/21 15:05 88 100 04/01/21 15:00 75 100 04/01/21 14:55 80 100 04/01/21 14:50 80 100 04/01/21 14:45 78 100 04/01/21 14:40 85 100 04/01/21 14:35 84 100 04/01/21 14:30 83 100 04/01/21 14:25 70 100 04/01/21 14:20 74 100 04/01/21 14:15 86 100 04/01/21 14:10 70 100 04/01/21 14:05 72 99 04/01/21 14:00 72 100 04/01/21 13:55 80 100 04/01/21 13:50 80 100 04/01/21 13:45 84 99 04/01/21 13:40 94 H 100 04/01/21 13:29 72 100 04/01/21 13:24 85 100 04/01/21 13:19 81 99 04/01/21 13:14 79 100 04/01/21 13:09 75 100 04/01/21 13:04 77 100 04/01/21 12:59 76 100 04/01/21 12:54 80 100 04/01/21 12:49 77 99 04/01/21 12:44 76 99 04/01/21 12:39 78 99 04/01/21 12:34 84 99 04/01/21 12:29 81 99 04/01/21 12:24 76 99 04/01/21 12:19 81 100 04/01/21 12:14 82 100 04/01/21 12:09 88 100 04/01/21 12:04 84 99 04/01/21 11:59 79 99 04/01/21 11:54 78 99 04/01/21 11:49 84 99 04/01/21 11:44 83 99 04/01/21 11:36 78 99 04/01/21 11:31 82 99 04/01/21 11:26 80 99 04/01/21 11:21 86 99 04/01/21 11:16 79 100 04/01/21 11:11 93 H 99 04/01/21 11:06 90 99 04/01/21 11:01 88 98 04/01/21 10:56 89 99 04/01/21 10:51 85 99 04/01/21 10:46 95 H 99 04/01/21 10:41 87 99 04/01/21 10:36 85 99 04/01/21 10:31 90 98 04/01/21 10:26 80 98 04/01/21 10:21 86 98 04/01/21 10:17 98 04/01/21 10:16 90 98 04/01/21 10:15 97.9 F 86 18 119/73 119/73 98 Intake and Output 04/01/21 04/01/21 04/02/21 14:59 22:59 06:59 Intake Total 7.367 1050 Output Total 2200 Balance 7.367 1050 -2200 Intake: IV 7.367 1050 AMPICILLIN/NS 1 GM/50 ML 50 1 gm In 50 ml @ 100 mls/ hr IV Q4H [facility] Rx#: [id number] Lactated Ringers 1,000 ml 1000 @ 125 mls/hr IV DIRECT [facility] Rx#:[id number] PITOCin/NS 30 UNIT/500ML 7.367 30 units In 500 ml @ 2 mls/hr IV TITR [facility] Rx#: [id number] Output: Urine 2000 Indwelling Catheter 1200 Self-Catheterization 800 Other 200 Other: Total, Output Amount 800 Weight 186 lb Patient Weight 04/02/21 06:59 Weight 186 lb - Exam Cardiovascular: Present: Regular rate Lungs: Present: Normal air movement Abdomen: Present: normal appearance, soft Vulva: both: normal Uterus: Present: normal, firm, other (light lochia noted) Extremities: Present: normal Incision: Present: other (1st degree laceration well approximated. ) - Labs Labs: Abnormal lab results 04/01/21 Range/Units 09:28 MCH 27 L (28-32) pg RDW 16.3 H (13.2-15.2) %
[2021-04-02] MEDS: PRENATAL VIT27-FE FUMARATE-FOLIC ACID VIT TAB PO SCH (10:33)
[2021-04-02] MEDS: DOCUSATE SODIUM 100 MG CAP PO SCH (10:33)
--- NOTE | 2021-04-02 13:21 | Post Anesthesia Evaluation ---
- Post Anesthesia Evaluation Patient Participated: Yes Airway Patent: Yes Stable Respiratory Function: Yes Nausea/Vomiting: No Temp > 96.8F: Yes Pain Manageable: Yes Adequeate Hydration: Yes Anesthesia Complications: No Block Receding Appropriately: Yes Patient on Ventilator: No
[2021-04-02 15:50] LABS: Hematocrit 30.1 % (30.3-42.9)
[2021-04-03] MEDS: IBUPROFEN 800 MG TAB PO SCH (00:03)
[2021-04-03] MEDS: DOCUSATE SODIUM 100 MG CAP PO SCH ×2 (00:03→09:08)
[2021-04-03] MEDS ORDERED: TETANUS,DIPH,PERTUSS(ACELL) VACCINE 0.5 ML SYRINGE IM ONE (01:20)
--- NOTE | 2021-04-03 05:53 | Discharge Summary ---
Providers - Providers Date of Admission: 04/01/21 08:28 Date of discharge: 04/03/21 (desires d/c home today) Attending physician: JEFFREY PONCE Primary care physician: JEFFREY PONCE Hospitalization Reason for admission: IOL @ 41wks Condition: Good Pertinent studies: post delivery H&H 10.0/30.1 Procedures: Hospital course: uncomplicated and course Disposition: 01 HOME / SELF CARE / HOMELESS Final Discharge Diagnosis (Prints w/discharge instructions): Time spent for discharge: 15 - Discharge Diagnoses (1) (normal spontaneous vaginal delivery) Status: Acute Core Measure Documentation - Palliative Care Palliative Care/ Comfort Measures: Not Applicable - Core Measures Any of the following diagnoses?: none Exam - Constitutional Vitals: Temp Pulse Resp BP Pulse Ox 98.3 F 68 20 120/80 98 04/03/21 00:24 04/03/21 00:24 04/03/21 04:31 04/03/21 00:24 04/03/21 00:24 General appearance: Present: no acute distress, well-nourished - EENT Eyes: Present: PERRL ENT: hearing intact, clear oral mucosa - Neck Neck: Present: supple, normal ROM - Respiratory Respiratory effort: normal Respiratory: bilateral: CTA - Cardiovascular Heart Sounds: Present: S1 & S2. Absent: rub, click - Extremities Extremities: No edema Peripheral Pulses: within normal limits - Abdominal General gastrointestinal: Present: soft, non-tender, non-distended, normal bowel sounds Female genitourinary: Present: normal - Integumentary Integumentary: Present: clear, warm, dry - Musculoskeletal Musculoskeletal: gait normal, strength equal bilaterally - Psychiatric Psychiatric: appropriate mood/affect, intact judgment & insight - Neurologic Neurologic: CNII-XII intact, moves all extremities - Additional findings Additional findings: VSSAF, Lochia scant, fundus firm Plan Activity: no restrictions Diet: regular Follow up with: JEFFREY PONCE MD [Primary Care Provider] - 7 Days (Congratulations!! Please call [phone] to schedule a follow up appointment in 4 weeks. Call for any questions or concerns. )
[2021-04-03 08:59] VITALS: BP 111/81
[2021-04-03] MEDS: WITCH HAZEL/ GLYCERIN PAD TP PRN (09:07)
[2021-04-03] MEDS: PRENATAL VIT27-FE FUMARATE-FOLIC ACID VIT TAB PO SCH (09:08)
[2021-04-03] MEDS ORDERED: medroxyPROGESTERone ACETATE 150 MG/ML SYRINGE IM ONE (15:00)
== END 2021-04-03 16:30 | disposition home or self-care (01) | DRG 774 ==
LOC: LD 08:26 → UNDOADMIN 08:26 → LD 08:28 → OB 04-02 02:36
PROVIDERS: ADMIT Obstetrics & Gynecology; ATTEND Obstetrics & Gynecology
PROC: 10E0XZZ Delivery of Products of Conception, External Approach (ICD-10-PCS; principal; 2021-04-01)
PROC: 10907ZC Drainage of Amniotic Fluid, Therapeutic from Products of Conception, Via Natural or Artificial Opening (ICD-10-PCS; 2021-04-01)
PROC: 0HQ9XZZ Repair Perineum Skin, External Approach (ICD-10-PCS; 2021-04-01)
PROC: 3E0R3BZ Introduction of Anesthetic Agent into Spinal Canal, Percutaneous Approach (ICD-10-PCS; 2021-04-01)
PROC: 00HU33Z Insertion of Infusion Device into Spinal Canal, Percutaneous Approach (ICD-10-PCS; 2021-04-01)
PROC: 3E0234Z Introduction of Serum, Toxoid and Vaccine into Muscle, Percutaneous Approach (ICD-10-PCS; 2021-04-03)
DX: O98.82 Other maternal infectious and parasitic diseases complicating childbirth (principal); O48.0 Post-term pregnancy; Z3A.41 41 weeks gestation of pregnancy; Z20.822 Contact with and (suspected) exposure to COVID-19; B95.1 Streptococcus, group B, as the cause of diseases classified elsewhere; O99.214 Obesity complicating childbirth; O70.0 First degree perineal laceration during delivery; Z37.0 Single live birth; Z23 Encounter for immunization
CPT/HCPCS: 36415; 85014; 85018; 85027; 85461; 86592; 86850; 86900; 86901; G0378; J3490; J0290; J1050; J2405; J2590; J2790; J7120; U0003